=== PATIENT | male | born 1990 | race American Indian/Alaskan Native ===

== ENCOUNTER 2017-01-03 00:30 | Emergency (ER) | payer SELFPAY ==
[2017-01-03] MEDS ORDERED: KETALAR IV ONE ×2 (00:38)
[2017-01-03] MEDS ORDERED: DIPRIVAN 10 MG/ML IV ONE (00:38)
--- NOTE | 2017-01-03 00:39 | Emergency Department Report ---
Upper Extremity - HPI Chief Complaint: Shoulder Injury Stated Complaint: SHOULDER PAIN Time Seen by Provider: 01/03/17 00:37 Upper Extremity: Right Shoulder Occurred When: Today Mechanism: Fall Severity: moderate Symptoms: Yes Pain with Movement, Yes Deformity, Yes Limited Range of Movement, No Numbness, No Weakness, No Swelling, No Bruising/Ecchymosis, No Laceration or Abrasion Other History: This is a 26-year-old male, he is right-hand dominant, previously unknown to me, presents to the ER with a shoulder dislocation after wrestling with a family member. He reports he did not hit his head or neck. There is no headache, neck pain, chest pain, abdominal pain, shortness of breath , weakness/numbness. The symptoms are constant. They worsen with range of motion and palpation. It decreased with rest. ED Review of Systems ROS: Stated complaint: SHOULDER PAIN Other details as noted in HPI Constitutional: denies: fever Eyes: denies: eye discharge ENT: denies: epistaxis Respiratory: denies: cough Cardiovascular: denies: chest pain Gastrointestinal: denies: abdominal pain Musculoskeletal: arthralgia Neurological: denies: headache Psychiatric: anxiety Upper Extremity Exam - Exam General: Vital signs noted. No distress. Alert and acting appropriately. Extraocular movements intact. Tongue midline. No facial droop. Facial sensation intact to light touch in the V1, V2, V3 distribution bilaterally. 5 and 5 strength in 4 extremities.. Sensation is intact to light touch in 4 extremities. Gait within normal limits. The bilateral upper extremities, sensation is intact to light touch in the deltoid, median, radial, ulna distribution. There is a palpable defect on the right shoulder, consistent with inferior dislocation. Left shoulder is unremarkable. Compartments are soft. Head and Torso: No HEENT Abnormality, No Neck Tenderness, No Chest/Lungs Abnormality, No Abdominal Tenderness, No Back Tenderness Shoulder Exam: Yes Shoulder Tenderness, Yes Shoulder Deformity, No Clavicle Tenderness, No Normal Range of Motion in Shoulder, No AC Joint Tenderness Arm Exam: No Arm/Humerus Tenderness, No Arm Deformity Elbow: Yes Normal Range of Motion in Elbow, No Elbow Tenderness, No Elbow Deformity Forearm: No Forearm Tenderness, No Forearm Deformity, No Pain with Pronation, No Pain with Supination Wrist: Yes Normal ROM in Wrist, No Wrist Tenderness, No Wrist Deformity, No Snuffbox Tenderness, No Pain with Axial Thumb Compression Hand: Yes Normal ROM in Digit(s), No Hand Tenderness, No Hand Deformity, No Digit Tenderness, No Digit(s) Deformity, No Tendon Dysfunction CMS Exam: Yes Normal Distal Pulses, Yes Normal Capillary Refill, Yes Normal Distal Sensation, No Broken Skin - Moderate Sedation Indications: diagnostic imaging proced ASA Class: I Mallampati Airway Score: 1 Preparation: monitoring coordinator applied, pulse oximeter, capnometry used, supplemental O2 applied, suction/airway equipment at bedside Ketamine: IV Ketamine Dose: 50 Complications: none Patient Tolerated Procedure: well - Orthopedic Joint Reduction Joint #1 Consent Obtained: verbal consent, written consent Time Out Performed: Yes Side: right Joint Reduction Location: shoulder Analgesia: moderate sedation Shoulder Technique Used (if applicable): scapula manipulation Technique Used: direct manipulation Post-Reduction Neuro Exam: intact Post-Reduction Vascular Exam: intact Post Reduction X-Ray Obtained: Yes Post Reduction X-Ray Results: reduced Splint Applied: Yes Patient Tolerated Procedure: well Additional Comments: After informed consent, the patient received moderate sedation with ketamine and propofol, using standard monitoring precautions, including End-tidal capnography. The right scapula was rotated and the catheter clockwise direction, while lateral and superior pressure was applied to the proximal humerus, resulting in a palpable "clunk", and successful reduction of the shoulder dislocation. The procedure was tolerated well by the patient. Procedure start time 1:01 AM Procedure end time: 1:04 AM. ED Medical Decision Making - Lab Data Vital Signs 01/03/17 01/03/17 01/03/17 00:43 01:25 01:27 Temperature 99.0 F Temperature [ 98.7 F Post-Procedure] Temperature [ 98.6 F Pre-Procedure] Pulse Rate 71 Pulse Rate [ 73 Post-Procedure] Pulse Rate [Pre 70 -Procedure] Respiratory 18 16 Rate Respiratory 18 Rate [Post- Procedure] Respiratory 18 Rate [Pre- Procedure] Blood Pressure 133/80 [Left] Blood Pressure 133/80 [Post-Procedure ] Blood Pressure 107/71 [Pre-Procedure] O2 Sat by Pulse 99 99 Oximetry O2 Sat by Pulse 99 Oximetry [Post -Procedure] O2 Sat by Pulse 99 Oximetry [Pre- Procedure] - Radiology Data Radiology results: report reviewed, image reviewed Initial x-ray demonstrates inferior shoulder dislocation, possible glenoid fracture. Postreduction x-ray demonstrates appropriate reduction - Medical Decision Making Differential diagnosis: Shoulder dislocation, glenoid fracture Assessment and plan: 26-year-old male with right-sided shoulder dislocation. It is successfully reduced. Sensation intact to light touch in the deltoid, median, radial, ulnar distribution. He is accompanied by family, and they independently corroborate the patient did not hit his head or neck. They're counseled to follow up with outpatient orthopedic doctor. Return precautions are reviewed. Critical care attestation.: If time is entered above; I have spent that time in minutes in the direct care of this critically ill patient, excluding procedure time. ED Disposition Clinical Impression: Closed dislocation of right shoulder Qualifiers: Encounter type: initial encounter Qualified Code(s): S43.004A - Unspecified dislocation of right shoulder joint, initial encounter Disposition: TO HOME OR SELFCARE Is pt being admited?: No Does the pt Need Aspirin: No Condition: Stable Instructions: Shoulder Dislocation (ED) Additional Instructions: Initial x-ray of the shoulder suggested possible shoulder fracture. Keep the sling in place. Do not remove the sling until instructed to by an orthopedic physician. Follow-up with an orthopedic physician within the next 7-10 days. Not following up in a timely fashion as recommended may result in an undiagnosed ligamentous injury to the shoulder, which can cause disability, and loss of functionality. Take acetaminophen every 4 hours, alternating with ibuprofen every 6 hours as needed for pain. Return to the ER right away with new pain, worsening pain, migration of pain, fevers, chills, weakness, numbness , confusion, intractable nausea or vomiting, inability to tolerate liquid feeds. Referrals: PRIMARY CAREMD [Primary Care Provider] - 3-5 Days AIDA OHARA MD [Staff Physician] - 3-5 Days Forms: Work/School Release Form(ED)
[2017-01-03] MEDS ORDERED: SUBLIMAZE ONE (00:50)
[2017-01-03] MEDS ORDERED: SUBLIMAZE IV ONE (00:50)
[2017-01-03] MEDS ORDERED: NACL 0.9% 1000 ML 1,000 ML IV ONE (00:50)
[2017-01-03] MEDS ORDERED: NACL 0.9% 1000 ML 1,000 ML ONE (00:53)
[2017-01-03] MEDS ORDERED: KETALAR ONE (00:53)
--- NOTE | 2017-01-03 01:11 | XRay Report ---
FINAL REPORT PROCEDURE: XR SHOULDER 2+V RT TECHNIQUE: Right shoulder radiographs including AP views in internal and external rotation and abduction. CPT 43905 HISTORY: right shoulder dislocation COMPARISON: No prior studies are available for comparison. FINDINGS: Fracture (s) and/or Dislocation(s): There is an anterior inferior dislocation of the humerus. An avulsion fracture off the superior posterior glenoid is possible. Repeat study after reduction is recommended. The remaining osseous structures appear intact.. Joint space(s): Normal . Soft tissues: Normal . Bone mineralization: Normal . Foreign bodies: None . IMPRESSION: Anterior inferior dislocation of the humerus. An avulsion fracture off of the posterior superior glenoid is possible.
[2017-01-03 01:33] VITALS: BP 107/71
--- NOTE | 2017-01-03 07:20 | XRay Report ---
RIGHT SHOULDER, ONE VIEW History: Postreduction film, right shoulder dislocation, pain. Findings: The anterior, inferior dislocation at the right glenohumeral joint has been reduced since earlier today at 0052 hours. Only a limited single AP view was obtained with overlying bony structures. There is however suggestion of a Hill-Sachs defect. The remainder of the examination is unremarkable. Impression: Successful reduction of the right shoulder dislocation. Possible Hill-Sachs lesion.
== END 2017-01-03 02:25 | disposition home or self-care (01) ==
LOC: ED 00:30
DX: S43.004A Unspecified dislocation of right shoulder joint, initial encounter (principal); X58.XXXA Exposure to other specified factors, initial encounter; Y93.72 Activity, wrestling; Y92.89 Other specified places as the place of occurrence of the external cause; Y99.8 Other external cause status
CPT/HCPCS: 23650; 73020; 73030; 96360; 99285; J2704; J3010; J7030